=== PATIENT | male | born 1940 | race Caucasian/White ===

== ENCOUNTER → 2025-03-14 13:41 | Outpatient (CLI) | payer MEDICARE, OTHER, SELFPAY ==
--- NOTE | 2025-03-14 13:52 | DI.ECHO.S_ITS ---
[facility] : : [address] : : [place] : : [id number] : : Phone: [phone] Echocardiogram Report + + :Name: JAKE LOVETT Study Date: 03/14/2025 Height: 67 in : :[facility] ReadingLocation: Weight: 190 lb : : Gender: Male BSA: 2.0 m2 : :: 1940 Age: 84 yrs BP: 111/54 mmHg: :Reason For Study: CAD : :Ordering Physician: SCOTT JAQUEZ Performed By: Clive Avendaño : :Referring: SCOTT JAQUEZ : + + Interpretation Summary 1. The left ventricular contractility is borderline. Estimated ejection fraction is 50 to 55% with no segmental wall motion abnormalities. No LVH indeterminate diastolic function. 2. The right ventricular contractility is normal. 3. Biatrial enlargement noted. The right and left ventricular cavity sizes are normal. 4. Trace to mild tricuspid regurgitation with estimated pulmonary systolic artery pressures of approximately 30 mmHg. 5. No obvious intracardiac shunts. 6. No obvious intracardiac masses nor thrombi. 7. No hemodynamically significant pericardial effusion. 8. Low right-sided filling pressures. 9. Borderline enlargement of the aortic root without obvious dissection. Conclusion: Low normal left ventricular systolic function with no significant valvular abnormalities. Procedure: A two-dimensional transthoracic echocardiogram with color flow and Doppler was performed. The study quality was technically good. There is no prior echocardiogram noted for this patient. The patient was in normal sinus rhythm during the exam. Left Ventricle: There is normal left ventricular wall thickness. The left ventricle is normal in size and wall thickness. There is no ventricular septal defect visualized. A false chord is noted (normal variant). The ejection fraction is estimated to be 50-55%. There are no focal wall motion abnormalities. Right Ventricle: The right ventricle is normal in size and function. Atria: The left atrium is severely dilated. The right atrium is moderately dilated. There is no Doppler evidence for an interatrial shunt. Mitral Valve: The mitral valve leaflets appear mildly thickened, but open well. The mitral valve leaflets are mildly calcified. The mitral papillary muscle appears thickened and/or calcified. The mitral valve chordae are thickened and/or calcified. There is trace mitral regurgitation. Aortic Valve: The aortic valve is trileaflet. The aortic valve is mildly calcified. The aortic valve opens well. There is trace aortic regurgitation. Tricuspid Valve: The tricuspid valve leaflets are thin and pliable. There is mild tricuspid regurgitation. The right ventricular systolic pressure is estimated to be at least 30 mmHg based on an estimated right atrial pressure of 3 mm Hg. Pulmonic Valve: The pulmonic valve is not well visualized. There is trace pulmonic regurgitation. Great Vessels: The aortic root is mildly dilated. The ascending aorta is at the upper limits of normal in size. The pulmonary artery is normal size. The IVC is of normal diameter and collapses greater than 50% with a sniff. This suggests a low right atrial pressure of 3 mm Hg. Pericardium/ Pleura There is no pericardial effusion. There is no pleural effusion. MMode/2D Measurements & Calculations LVIDd: 5.1 cm LVOT diam: 2.1 cm LVIDs: 3.6 cm Ao root diam: 4.0 cm FS: 29.6 % asc Aorta Diam: 3.8 cm EPSS: 0.89 cm IVSd: 0.78 cm LVPWd: 0.71 cm LV barth. diameter/BSA (cm/m^2): 2.6 LV sys. diameter/BSA (cm/m^2): 1.8 LA A2 area: 22.6 cm2 RA long axis: 5.6 cm LA A4 area: 33.9 cm2 RA area: 20.9 cm2 LA length (vol): 7.1 cm RA vol: 65.9 ml LA vol: 91.3 ml RA : 33.3 ml/m2 LA vol index: 46.2 ml/m2 IVC diam: 1.8 cm TAPSE: 2.2 cm Doppler Measurements & Calculations Ao V2 max: 169.8 cm/sec LVOT Max Larry: 115.1 cm/sec Ao V2 mean: 116.0 cm/sec LV V1 max P.3 mmHg Ao max P.5 mmHg LV V1 VTI: 29.0 cm Ao mean P.1 mmHg VICTOR MANUEL(I,D): 2.8 cm2 Ao V2 VTI: 37.1 cm VICTOR MANUEL(V,D): 2.4 cm2 sev ratio: 0.78 VICTOR MANUEL indexed to BSA (cm^2/m^2): 1.4 MV E max larry: 94.7 cm/sec TR max larry: 258.9 cm/sec MV A max larry: 83.1 cm/sec TR max P.8 mmHg MV E/A: 1.1 PA V2 max: 119.4 cm/sec Med Peak E' Larry: 5.6 cm/sec PA V2 mean: 84.8 cm/sec E/E' med: 17.0 PA mean P.1 mmHg Lat Peak E' Larry: 11.4 cm/sec PA pr(Accel): 36.2 mmHg E/E' lat: 8.3 E/e' average: 12.7 MV dec time: 0.24 sec SV(LVOT): 104.4 ml Reading Physician:LEANDRA
== END ==
PROVIDERS: PCP Internal Medicine; Referring Provider Internal Medicine; Visit Provider Internal Medicine
DX: I25.10 Atherosclerotic heart disease of native coronary artery without angina pectoris (principal); I07.1 Rheumatic tricuspid insufficiency; I70.0 Atherosclerosis of aorta; I77.89 Other specified disorders of arteries and arterioles
CPT/HCPCS: 93306